=== PATIENT | female | born 1965 | race Caucasian/White ===

== ENCOUNTER 2018-05-02 07:43 | Outpatient (CLI) | payer OTHER ==
[~2018-05-02 07:43] MED LIST: KETO10TA2 PO; SYNTHROID125 MCG
[2018-05-05] MEDS ORDERED: CALCIUM500 M2 PO (13:01)
[2018-05-05] MEDS ORDERED: ZANTAC150 MG PO (13:01)
[2018-05-05] MEDS ORDERED: GLUCOSAMINE-CH1 EAC7 PO (13:01)
[2018-05-05] MEDS ORDERED: SINGULAIR 5MG5 MG PO (13:01)
[2018-05-05] MEDS ORDERED: VITAMIN D400 UNI2 PO (13:02)
== END 2018-05-02 09:20 | disposition home or self-care (01) ==
LOC: LAB 07:43
DX: K80.10 Calculus of gallbladder with chronic cholecystitis without obstruction (principal); Z01.810 Encounter for preprocedural cardiovascular examination

== ENCOUNTER 2018-05-07 07:05 | Day surgery (SDC) | payer OTHER ==
[~2018-05-07 07:05] MED LIST changes: +CALCIUM500 M2 PO; +GLUCOSAMINE-CH1 EAC7 PO; +SINGULAIR 5MG5 MG PO; +VITAMIN D400 UNI2 PO; +ZANTAC150 MG PO
[2018-05-07] MEDS ORDERED: PERCOCET 5-3251 EACH PO (12:04)
[2018-05-07] MEDS ORDERED: SURFAK240 MG PO (12:04)
[2018-05-07] MEDS ORDERED: POLY119PG PO (12:04)
== END 2018-05-07 18:00 | disposition home or self-care (01) ==
LOC: CIR.AMB 07:05
DX: K80.10 Calculus of gallbladder with chronic cholecystitis without obstruction (principal)